=== PATIENT | female | born 1960 | race Caucasian/White ===

== ENCOUNTER 2022-06-15 00:32 | Emergency (ER) | payer MEDICAID ==
[~2022-06-15] VITALS: Ht 165.1 cm; Wt 80.7 kg
[2022-06-15] MEDS ORDERED: IV NORMAL SALINE 1000 ML BAG IV ONE (01:00)
[2022-06-15] MEDS ORDERED: SITA100T PO (01:03)
[2022-06-15] MEDS ORDERED: LISI-782 PO (01:03)
[2022-06-15] MEDS ORDERED: METF-442 PO (01:03)
[2022-06-15] MEDS ORDERED: INSU100V7 SQ (01:03)
[2022-06-15] MEDS ORDERED: LEVE500T9 PO (01:03)
[2022-06-15] MEDS ORDERED: CLOP75TA15 PO (01:03)
[2022-06-15 01:10] LABS: HEMATOCRIT 42.2 % (31.2-41.9); MEAN CORPUSCULAR HEMOGLOBIN 29.5 uug (24.7-32.8); MEAN CORPUSCULAR VOLUME 86.7 fL (75.5-95.3); PLATELET COUNT (AUTO) 272 K/uL (179-408)
--- NOTE | 2022-06-15 01:10 | NUR ---
First contact. Pt presently in 5A assigned room hooked up to monitor. Pt admits to having chest pain and a burning sensation to her stomach. Skin noted around abdominal area, underbreast, chest, as well as back area covered in redness with blisters noted. made aware.
[2022-06-15 01:16] LABS: ABG BASE EXCESS 2.2 mmol/L; ABG HCO3 24.4 mmol/L; ABG PCO2 31.3 mmHg (35.0-45.0); ABG PO2 76.2 mmHg (75.0-100.0); ABG SITE RIGHT BRACHIAL; COHb 0.8 % (0.5-1.5); MetHb 0.1 % (0.0-1.5); O2Hb 95.7 % (94.0-97.0); VENT MODE ROOM AIR
[2022-06-15 01:22] LABS: ETHANOL < 3 MG/DL (0-0)
[2022-06-15 01:35] LABS: ALANINE AMINOTRANSFERASE 38 U/L (14-59); ALKALINE PHOSPHATASE 62 U/L (50-136); ASPARTATE AMINOTRANSFERASE 17 U/L (15-37); BILIRUBIN,DIRECT 0.1 mg/dL (0.0-0.2); BILIRUBIN,TOTAL 0.5 mg/dL (0.2-1.0); CARBON DIOXIDE 28 mmol/L (21-32); CHLORIDE 97 mmol/L (98-107); POTASSIUM 3.5 mmol/L (3.5-5.1); UREA NITROGEN, BLOOD 15 mg/dL (7-18)
[2022-06-15] MEDS ORDERED: FLUORESCEIN SODIUM 1 MG STRIP ONE (01:35)
[2022-06-15] MEDS ORDERED: MORPHINE SULFATE 4 MG/1 ML DISP.SYRIN ONE (01:37)
[2022-06-15] MEDS ORDERED: TETRACAINE HCL 0.5% OPHT DROP 2 ML BOTTLE ONE (01:37)
[2022-06-15 01:38] LABS: THYROID STIMULATING HORMONE 4.058 mIU/mL (0.358-3.740)
[2022-06-15] MEDS ORDERED: MORPHINE SULFATE 2 MG/1 ML DISP.SYRIN ONE (01:38)
[2022-06-15] MEDS ORDERED: FLUORESCEIN SODIUM 1 MG STRIP OP ONE (01:45)
[2022-06-15] MEDS ORDERED: TETRACAINE HCL 0.5% OPHT DROP 2 ML BOTTLE OP ONE (01:45)
[2022-06-15] MEDS ORDERED: MORPHINE SULFATE 4 MG/1 ML DISP.SYRIN IM ONE (01:45)
[2022-06-15 01:47] LABS: GLUCOSE 389 mg/dL (74-106)
[2022-06-15] MEDS ORDERED: IV NS 1000 ML 1,000 ML IV ONE (02:15)
[2022-06-15] MEDS ORDERED: ACYCLOVIR 400 MG TABLET PO ONE (02:30)
--- NOTE | 2022-06-15 03:00 | NUR ---
Pt resting in bed with eyes closed. No acute distress noted.
[2022-06-15] MEDS ORDERED: HYDR-4209 PO (03:13)
[2022-06-15] MEDS ORDERED: ACYC-108 PO (03:13)
--- NOTE | 2022-06-15 03:35 | NUR ---
Patient discharged; however, waiting on ride. Written and verbal after care instructions given. Patient verbalizes understanding of instructions. Stressed follow up or return to ER for worsening s/s.
[2022-06-15] MEDS ORDERED: ACYCLOVIR 200 MG CAPSULE ONE (05:57)
--- NOTE | 2022-06-15 06:00 | NUR ---
Pt decided to get uber ride after multiple failed attempts to reach son. Pt is ambulatory with a steady gait and AAOx4 with abc's intact. IV d/c'd with catheter tip intact. Gauze and tape placed. 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
[2022-06-15 06:52] VITALS: BP 148/75
== END 2022-06-15 06:10 | disposition home or self-care (01) ==
LOC: ER 00:42
DX: B02.9 Zoster without complications (principal); E87.3 Alkalosis; E11.65 Type 2 diabetes mellitus with hyperglycemia; Z79.84 Long term (current) use of oral hypoglycemic drugs; R00.0 Tachycardia, unspecified
CPT/HCPCS: 80076; 80048; 82009; 84443; 85025; 87040 ×2; 84484 ×3; 36415; 93005; 71045; 99285; 96374; 83605; 80320; 36600; J2270 ×2; J7040; A4663; G0480